=== PATIENT | female | born 1960 ===

== ENCOUNTER 2022-07-10 02:39 | Emergency (ER) | payer BC ==
[~2022-07-10] VITALS: Ht 152.4 cm; Wt 63.0 kg
[~2022-07-10 02:39] MED LIST: CARAFATE1 G PO; LEVSIN/SL0.125 MG PO; PROTONIX40 MG PO
== END 2022-07-10 04:29 | disposition home or self-care (01) ==
LOC: ER 02:39
DX: R05.9 Cough, unspecified (principal); Z90.13 Acquired absence of bilateral breasts and nipples